=== PATIENT | male | born 1960 | race Caucasian/White ===

== ENCOUNTER 2016-12-30 18:12 | Emergency (ER) | payer OTHER ==
--- NOTE | ~2016-12-30 | CR229 ---
[facility]. [facility] A Service of [facility] & [facility] RADIOLOGY TEXT RESULTS PATIENT: CONCHA DEL CID LOCATION: SED : 62 UNIT #: [id number] AGE: [address]: Juvencio Chase SEX: M ORDER DR: [id number] [place] [id number] E MR#: [id number] Acc #: [id number] NAME: CONCHA DEL CID : 1960 SEX: M STUDY DATE/TIME: 12/30/2016 20:39 UNIT: SED ROOM: STUDY DESCRIPTION: CR Shoulder Min 2 View Lt Attending Physician: Juvencio Chase P.A.-C. Ordering Physician: Juvencio Chase P.A.-C. Primary Care Physician: Shireen Win M.D. MEDICAL IMAGING REPORT This report is preliminary unless electronic signature is present. EXAM Left shoulder, 12/30/16 HISTORY Patient reached up to grab something 2 hours ago, and shoulder popped out of joint. These are postreduction films. FINDINGS Two views of the left shoulder were obtained. No comparison. There is no fracture. There is no AC joint separation. Normal anatomic alignment is seen at the glenohumeral joint. Cystic degenerative changes are noted in the greater tuberosity of the humerus. IMPRESSION Anatomic alignment of the shoulder. No acute fractures. Dictated by... Kush Blunt Jr., M.D. THIS IS AN ELECTRONICALLY VERIFIED REPORT Kush Blunt Jr., M.D. at 01/02/2017 4:23 PM AUSTIN/yevgeniy TD: 12/31/2016 08:06 JOB #: [id number] MEDICAL IMAGING REPORT Page 1 of 1
[~2016-12-30 18:12] MED LIST: NO MEDICATIONS; NORFLEX100 M1 PO; VOLTAREN75 MG PO
== END 2016-12-30 21:46 | disposition home or self-care (01) ==
LOC: SED 18:12
DX: S43.005A Unspecified dislocation of left shoulder joint, initial encounter (principal); Z88.0 Allergy status to penicillin; Z88.5 Allergy status to narcotic agent; W18.30XA Fall on same level, unspecified, initial encounter; Y93.89 Activity, other specified; Y92.69 Other specified industrial and construction area as the place of occurrence of the external cause; Y99.0 Civilian activity done for income or pay
CPT/HCPCS: 23650; 36415; 73030; 96374; 96375; 99284; J1170; J2405; J3360